=== PATIENT | female | born 1965 | race Caucasian/White ===

== ENCOUNTER 2020-07-11 13:35 | Emergency (ER) | payer OTHER, SELFPAY ==
[2020-07-11 14:20] VITALS: BP 140/79; PULSE 72; RESP 16; TEMP 36.9; O2SAT 97; BMI 39.1
--- NOTE | 2020-07-11 14:42 | ED_ITS ---
HPI - General Adult General Chief complaint: General Medical Stated complaint: swelling of legs Time Seen by Provider: 07/11/20 14:42 Source: patient Mode of arrival: ambulatory Limitations: no limitations History of Present Illness HPI narrative: 55-year-old female with below noted past medical history including remote history of provoked DVT in the left lower extremity in 2012 when she had ankle fracture requiring surgery. Was on short course of Coumadin subsequently has been otherwise doing well. States she does have history of arthritis wound frequently gets pains in the joints including hips ankles knees and was doing some more walking more than usual but has been getting pain in the guzman/ calf area in the right foot concern for DVT. She called her doctor [facility] for further evaluation treatment. Onset (ago): day(s) Severity: mild Pain Consistency: intermittent Treatments prior to arrival: none Related Data Home Medications Medication Instructions Recorded Confirmed diclofenac sodium 1 % topical gel 4 g TOPICAL BID PRN 07/11/20 hydrochlorothiazide 12.5 mg capsule 12.5 mg PO QAM 07/11/20 Allergies Allergy/AdvReac Type Severity Reaction Status Date / Time acetaminophen [From PERCOCET] Allergy Unknown HYPOTENSION Unverified 06/06/20 16:27 aspirin [From PERCODAN] Allergy Unknown HYPOTENSION Unverified 06/06/20 16:27 codeine Allergy Unknown hypotension Verified 02/19/20 00:00 meperidine [From DEMEROL] Allergy Unknown HYPOTENSION Unverified 06/06/20 16:27 oxycodone [From PERCODAN] Allergy Unknown HYPOTENSION Unverified 06/06/20 16:27 prednisone [PREDNISONE] Allergy Unknown * HIGH Unverified 06/06/20 16:27 DOSES SEVERE HEADACHE, severe headaches, severe headaches terfenadine [From SELDANE] Allergy Unknown TACHYCARDIA Unverified 06/06/20 16:27 Codeine Sulfate Allergy Unknown hypotension Uncoded 02/16/20 00:00 Percodan Allergy Unknown hypotension Uncoded 02/16/20 00:00 Review of Systems Review of Systems: Constitutional: No Weight loss, No Fever, No Chills, No Night Sweats, No Fatigue, No Malaise ENT/Mouth: No Hearing loss, No Ear Pain, No Nasal Congestion, Cardiovascular: No Chest Pain, No SOB, No Dyspnea on Exertion, No Orthopnea, No Edema, No Palpitations Respiratory: No Cough, No Sputum, No Wheezing, No Smoke Exposure, No Dyspnea Gastrointestinal: No Nausea, No Vomiting, No Diarrhea, No Constipation, No abdominal Pain, No Hematochezia, No Melena Genitourinary: no irregular bleeding, No Dysuria, No Urinary Frequency, No Hematuria, No Urinary Incontinence, No Urgency, No Flank Pain, No Urinary Flow Changes, No Hesitancy Musculoskeletal: No joint pain, No Myalgias, No Joint Swelling Skin: No Skin Lesions, No rash Neuro: No Weakness, No Numbness, No Paresthesias, No Loss of Consciousness, No Dizziness, No Headache Psych: No Anxiety/Panic Heme/Lymph: No Bruising, No Bleeding,No Lymphadenopathy Endocrine: No Polyuria, No Polydipsia, No Temperature Intolerance Yes all other systems are reviewed and are negative [facility] Past Medical History Attestation statement: The following information was validated with the patient. Medical History (Updated 07/11/20 @ 16:52 by Edd Helton NP) No known health problems Social History Social History Advance Directives: Yes Advance Directives Information Provided: No Advance Directives on File: No Physical Exam Vital Signs: Vital Signs: Vital Signs Temp Pulse Resp BP Pulse Ox 07/11/20 16:04 98.2 F 75 18 120/62 97 07/11/20 14:20 98.5 F 72 16 140/79 H 97 Body Mass Index 39.1 Reviewed Const: General: cooperative and healthy appearing; No acute distress or intoxicated appearing Nutritional Appearance: average body habitus Orientation/consciousness: patient oriented x3 HENMT: Head: Yes normal to inspection Ears: hearing grossly normal bilaterally Eyes: General: appearance normal, both eyes and all related structures Visual Correia: normal visual correia by confrontation Neck: Neck: Yes normal visual inspection and No tender Thyroid: Thyroid normal Chest: Chest palpation & inspection: normal inspection of the chest Resp: Effort & Inspection: normal respiratory effort Cardio: Jugular venous distension: no JVD : General: Yes no CVA tenderness Back/Spine/Pelvis: Back: no CVA tenderness Skin: General skin exam: no rashes or lesions noted Neuro: General: patient oriented x3 Extrem: General: Yes normal to inspection Course Course Course Narrative: Bilateral lower extremity ultrasounds negative. No sinus symptoms of overt edema/erythema/ infectious process. Likely shins for versus arthritis as source of the pain /etiology. Home medications/ return/ follow-up instructions provided. Patient verbalized understanding and agreeable. Discharge Plan Discharge Clinical Impression: Pain of right calf, Osteoarthritis Patient Disposition: Home, Self-Care Instructions: Arthritis (ED) Additional Instructions: taking medication prescribed Return if any concerns or worsening symptoms Ultrasound of bilateral lower extremities today were negative for acute DVT Thank you Prescriptions: No Action hydrochlorothiazide 12.5 mg capsule 12.5 mg PO QAM RF: 0 diclofenac sodium 1 % gel 4 g topical BID PRNRF: 0 Referrals: Dnenise Florence MD [Primary Care Provider] - 1 week Interventions: ED Discharge Assessment Last Done: 07/11/20 17:02 Discharge Date/Time: 07/11/20 17:02
--- NOTE | 2020-07-11 14:43 | US_ITS ---
EXAMINATION: US VENOUS ULTRASOUND WITH DOPPLER LOWER EXTREMITY, BILATERAL CLINICAL INFORMATION: Bilateral leg pain COMPARISON: April 25, 2013 TECHNIQUE: Ultrasound of the deep veins is performed from the hip to the calf with compression sonography and color and pulse Doppler assessment. Spectral analysis with color-flow imaging is performed. FINDINGS: RIGHT: There is normal venous compression and respiratory variation and augmented flow. The visualized common femoral vein, superficial femoral vein, profunda femoral vein, popliteal vein, and the trifurcation region shows no evidence of deep venous thrombosis. There is no significant popliteal fossa cyst. No popliteal artery aneurysm. LEFT: There is normal venous compression and respiratory variation and augmented flow. The visualized common femoral vein, superficial femoral vein, profunda femoral vein, popliteal vein, and the trifurcation region shows no evidence of deep venous thrombosis. There is no significant popliteal fossa cyst. No popliteal artery aneurysm. If the patient's symptoms persist, followup ultrasound in 5 days 7 days might be of value to exclude proximal propagation from a non-visualized calf vein. US/US venous duplex LE BI IMPRESSION: No acute DVT demonstrated in the bilateral lower extremity.
[2020-07-11 16:04] VITALS: BP 120/62; PULSE 75; RESP 18; TEMP 36.8; O2SAT 97
== END 2020-07-11 17:02 | disposition home or self-care (01) ==
PROVIDERS: Emergency Provider Emergency Medicine; PCP Internal Medicine
DX: R60.0 Localized edema (principal); M19.09 Primary osteoarthritis, other specified site; M79.605 Pain in left leg; M79.604 Pain in right leg
CPT/HCPCS: 93970; 99284

== ENCOUNTER 2020-12-27 06:48 | Outpatient (REF) | payer OTHER, SELFPAY ==
[2020-12-27 11:48] LABS: Alanine Aminotransferase 93 U/L (0-31); Anion Gap 12 (12-20); Aspartate Amino Transferase 94 U/L (5-31); Blood Urea Nitrogen 18 mg/dL (9-16); Calcium 9.4 mg/dL (8.4-10.2); Carbon Dioxide 32 mmol/L (22-29); Chloride 100 mmol/L (96-108); Cholesterol 210 mg/dL; Estimated Glomerular Filt Rate > 60; Glucose Fasting 136 mg/dL (60-99); HDL Cholesterol 43 mg/dL; LDL Cholesterol Calculated 141 mg/dl; Potassium 4.1 mmol/L (3.3-5.1); Sodium 140 mmol/L (135-145); Triglycerides 130 mg/dL
[2020-12-27 12:03] LABS: Vitamin D 25-OH Total 27.8 ng/mL (>30)
[2020-12-30 07:58] LABS: SARS COV2 IgG Positive (Negative)
== END 2020-12-27 06:49 | disposition home or self-care (01) ==
LOC: HO.HMGCLDS 06:48
PROVIDERS: PCP Internal Medicine; Visit Provider Internal Medicine
DX: Z00.01 Encounter for general adult medical examination with abnormal findings (principal); Z20.822 Contact with and (suspected) exposure to COVID-19; I10 Essential (primary) hypertension; Z78.0 Asymptomatic menopausal state
CPT/HCPCS: 36415; 80048; 80061; 82306; 84450; 84460; 86769

== ENCOUNTER 2021-04-18 06:54 | Outpatient (REF) | payer OTHER, SELFPAY ==
[2021-04-18 11:30] LABS: Estimated Average Glucose 148 mg/dL; Hemoglobin A1c % 6.8 %
[2021-04-18 11:44] LABS: Anion Gap 10 (12-20); Blood Urea Nitrogen 16 mg/dL (9-16); Calcium 9.7 mg/dL (8.4-10.2); Carbon Dioxide 31 mmol/L (22-29); Chloride 103 mmol/L (96-108); Cholesterol 191 mg/dL; Estimated Glomerular Filt Rate > 60; Glucose Fasting 129 mg/dL (60-99); HDL Cholesterol 41 mg/dL; LDL Cholesterol Calculated 127 mg/dl; Potassium 4.2 mmol/L (3.3-5.1); Sodium 140 mmol/L (135-145); Triglycerides 115 mg/dL
== END 2021-04-18 06:55 | disposition home or self-care (01) ==
LOC: HO.HMGCLDS 06:54
PROVIDERS: PCP Internal Medicine; Visit Provider Internal Medicine
DX: E78.5 Hyperlipidemia, unspecified (principal); I10 Essential (primary) hypertension; R73.01 Impaired fasting glucose
CPT/HCPCS: 36415; 80048; 80061; 83036